=== PATIENT | male | born 1985 | race Caucasian/White ===

== ENCOUNTER 2020-12-30 09:18 | Inpatient (IN) | payer OTHER ==
[~2020-12-30] VITALS: Ht 170.2 cm; Wt 115.8 kg
[2020-12-30] VITALS (7 sets, daily range): BP systolic 101–132; BP diastolic 56–84
[2020-12-30 11:52] LABS: BASOPHILS % (AUTO) 0.7 % (0.0-5.0); EOSINOPHILS % (AUTO) 2.7 % (0.0-8.0); LYMPHOCYTES % (AUTO) 38.8 % (21.0-51.0); MEAN CORPUSCULAR HEMOGLOBIN 33.2 pg (27.0-33.0); MEAN CORPUSCULAR HGB CONC 31.8 g/dL (32.0-36.0); MEAN CORPUSCULAR VOLUME 104.3 fL (79-99); MONOCYTES % (AUTO) 10.2 % (3.0-13.0); NEUTROPHILS % (AUTO) 47.1 % (40.0-77.0); PLATELET COUNT (AUTO) 53 K/uL (130-400); RED BLOOD CELL COUNT(AUTO) 1.84 MIL/uL (4.50-6.20); RED CELL DISTRIBUTION WIDTH 14.7 % (11.0-15.5); WHITE BLOOD COUNT (AUTO) 4.4 K/uL (4.8-10.8)
[2020-12-30 12:02] LABS: INR 1.4 (0.85-1.15); PROTHROMBIN TIME 14.8 SEC (9.6-11.6)
[2020-12-30 12:10] LABS: HEMATOCRIT 19.2 % (42-54)
[2020-12-30 12:25] LABS: CREATININE 1.7 mg/dL (0.5-1.5); POTASSIUM 3.7 mmol/L (3.5-5.1)
[2020-12-30 12:26] LABS: B-TYPE NATRIURETIC PEPTIDE 186 pg/mL (0-100)
[2020-12-30 12:29] LABS: ALBUMIN 2.3 g/dL (3.5-5.0); BILIRUBIN,TOTAL 2.4 mg/dL (0.2-1.0); MAGNESIUM 1.7 mg/dL (1.80-2.40)
[2020-12-30] MEDS ORDERED: ONDANSETRON 4MG INJ IV PRN (14:00)
[2020-12-30] MEDS ORDERED: CHLORDIAZEPOXIDE HCL 25 MG CAP PO PRN ×2 (14:00)
[2020-12-30] MEDS ORDERED: PHARMACY COMMUNICATION MISC PRN (14:00)
[2020-12-30] MEDS ORDERED: MORPHINE 2 MG SYG IV PRN (14:00)
[2020-12-30] MEDS ORDERED: LACTULOSE 20 GM/30 ML UDCUP PO PRN ×2 (14:00)
[2020-12-30] MEDS ORDERED: LORAZEPAM 2 MG/ML 1 ML VIAL IVP PRN ×2 (14:00)
[2020-12-30] MEDS: FUROSEMIDE 20MG VIAL IV SCH (14:38)
[2020-12-30 16:03] LABS: % IRON SATURATION 16.5 % (30-44)
[2020-12-30] MEDS ORDERED: TRAZ-185 PO (16:52)
[2020-12-30] MEDS ORDERED: SPIR100T5 PO (16:52)
[2020-12-30] MEDS ORDERED: OMEP40CA21 PO (16:52)
[2020-12-30] MEDS ORDERED: ALPR1TAB2 PO (16:52)
[2020-12-30] MEDS ORDERED: ESCI10TA PO (16:52)
[2020-12-30] MEDS ORDERED: PROP10TA10 PO (16:52)
[2020-12-30] MEDS ORDERED: BUPR8TAB4 SL (16:52)
[2020-12-30] MEDS ORDERED: FURO40TA7 PO (16:52)
[2020-12-30 19:30] LABS: HEMATOCRIT 20.9 % (42-54)
[2020-12-30] MEDS: TRAZODONE HCL 50 MG TAB PO SCH (21:48)
[2020-12-30] MEDS: LACTULOSE 20 GM/30 ML UDCUP PO SCH (21:49)
[2020-12-30] MEDS: PROPRANOLOL HCL 10 MG TAB PO SCH (21:49)
[2020-12-30 23:21] LABS: APPEARANCE,URINE Cloudy (CLEAR); BILIRUBIN,URINE Negative (NEGATIVE); COLOR,URINE Dark Yellow (YELLOW); GLUCOSE, URINE (UA) Negative (NEGATIVE); KETONES,URINE Negative (NEGATIVE); LEUKOCYTE ESTERASE ,URINE Trace (NEGATIVE); NITRATE,URINE Negative (NEGATIVE); OCCULT BLOOD,URINE Large (NEGATIVE); PH,URINE 5.5 (5.0-8.0); PROTEIN,URINE POS 1+ mg/dL (NEGATIVE)
[2020-12-30 23:29] LABS: AMPHET/METH SCREEN,URINE NEGATIVE (NEGATIVE); BARBITURATE SCREEN, URINE NEGATIVE (NEGATIVE); BENZODIAZEPINES SCREEN,URINE POSITIVE (NEGATIVE); CANNABINOID SCREEN,URINE NEGATIVE (NEGATIVE); COCAINE SCREEN,URINE NEGATIVE (NEGATIVE); OPIATE SCREEN,URINE NEGATIVE (NEGATIVE); PHENCYCLIDINE SCREEN,URINE NEGATIVE (NEGATIVE)
[2020-12-30 23:32] LABS: RBC,URINE 26-50 /HPF (0-1); WBC,URINE 0-1 /HPF (0-1)
[2020-12-30 23:33] LABS: BACTERIA,URINE Rare /HPF (None Seen)
[2020-12-30 23:35] LABS: SQUAMOUS EPITHELIAL CELL,UR 0-2 /HPF (0-2)
[2020-12-31 01:35] LABS: CHLORIDE,URINE RANDOM 79 mmol/L (110-250); CREATININE,URINE RANDOM 75 mg/dL (30-135); POTASSIUM,URINE RANDOM 22 mmol/L (25-125); SODIUM,URINE RANDOM 53 mmol/l (40-220)
[2020-12-31] MEDS: FUROSEMIDE 20MG VIAL IV SCH ×2 (02:29→13:05)
[2020-12-31 04:00] VITALS: BP_SYST 101; BP_SYST 116; BP_DIAS 57; BP_DIAS 65
[2020-12-31 04:13] LABS: HEMATOCRIT 22.8 % (42-54); MEAN CORPUSCULAR HEMOGLOBIN 32.2 pg (27.0-33.0); MEAN CORPUSCULAR HGB CONC 32.9 g/dL (32.0-36.0); MEAN CORPUSCULAR VOLUME 97.9 fL (79-99); RED BLOOD CELL COUNT(AUTO) 2.33 MIL/uL (4.50-6.20); RED CELL DISTRIBUTION WIDTH 16.2 % (11.0-15.5); WHITE BLOOD COUNT (AUTO) 4.3 K/uL (4.8-10.8)
[2020-12-31 04:29] LABS: ALBUMIN 2.3 g/dL (3.5-5.0); CREATININE 1.5 mg/dL (0.5-1.5); MAGNESIUM 1.5 mg/dL (1.80-2.40); PHOSPHORUS 3.6 mg/dL (2.5-4.9); POTASSIUM 3.9 mmol/L (3.5-5.1); TOTAL PROTEIN, SERUM 8.1 g/dL (6.0-8.3); URIC ACID 6.9 mg/dL (2.6-7.2)
[2020-12-31 07:14] VITALS: BP 126/69
[2020-12-31] MEDS: (Escitalopram Oxalate (Lexapro) 10 MG) PO SCH (09:00)
[2020-12-31] MEDS: BUPRENORPHINE HCL SL SCH (09:00)
[2020-12-31] MEDS: ALPRAZOLAM 1 MG TAB PO SCH (10:07)
[2020-12-31] MEDS: THIAMINE HCL 100 MG/ML 2ML VIAL IM SCH (10:07)
[2020-12-31] MEDS: MULTIVITAMIN TABLET PO SCH (10:08)
[2020-12-31] MEDS: FOLIC ACID 1 MG TABLET PO SCH (10:08)
[2020-12-31] MEDS: PROPRANOLOL HCL 10 MG TAB PO SCH ×2 (10:08→21:55)
[2020-12-31] MEDS: LACTULOSE 20 GM/30 ML UDCUP PO SCH ×2 (10:09→21:55)
[2020-12-31 11:57] VITALS: BP 116/67
[2020-12-31 15:35] VITALS: BP 112/58
[2020-12-31 16:11] LABS: HEPATITIS A ANTIBODY IGM Negative (Negative); HEPATITIS B CORE IGM Negative (Negative); HEPATITIS Bs ANTIGEN SCREEN P Negative (Negative)
[2020-12-31 20:00] VITALS: BP 114/67
[2020-12-31] MEDS: TRAZODONE HCL 50 MG TAB PO SCH (21:55)
[2021-01-01] VITALS (20 sets, daily range): BP systolic 100–143; BP diastolic 48–93
[2021-01-01 06:44] LABS: BASOPHILS % (AUTO) 0.6 % (0.0-5.0); LYMPHOCYTES % (AUTO) 40.4 % (21.0-51.0); MEAN CORPUSCULAR HEMOGLOBIN 31.7 pg (27.0-33.0); MEAN CORPUSCULAR HGB CONC 31.6 g/dL (32.0-36.0); MEAN CORPUSCULAR VOLUME 100.5 fL (79-99); MONOCYTES % (AUTO) 11.4 % (3.0-13.0); NEUTROPHILS % (AUTO) 45.3 % (40.0-77.0); PLATELET COUNT (AUTO) 59 K/uL (130-400); RED BLOOD CELL COUNT(AUTO) 2.08 MIL/uL (4.50-6.20); RED CELL DISTRIBUTION WIDTH 15.9 % (11.0-15.5); WHITE BLOOD COUNT (AUTO) 3.4 K/uL (4.8-10.8)
[2021-01-01 06:54] LABS: INR 1.61 (0.85-1.15); PROTHROMBIN TIME 16.8 SEC (9.6-11.6)
[2021-01-01 07:00] LABS: HEMATOCRIT 20.9 % (42-54)
[2021-01-01] MEDS ORDERED: OCTREOTIDE ACETATE 1,250 MCG in 0.9% NACL 250ML 250 ML IV SCH (09:00)
[2021-01-01] MEDS: (Escitalopram Oxalate (Lexapro) 10 MG) PO SCH (09:00)
[2021-01-01] MEDS ORDERED: OCTREOTIDE ACETATE 100 MCG/ML AMP IV SCH (09:00)
[2021-01-01] MEDS: BUPRENORPHINE HCL SL SCH (09:00)
[2021-01-01] MEDS: THIAMINE HCL 100 MG/ML 2ML VIAL IM SCH (09:00)
[2021-01-01 09:09] LABS: CREATININE 1.7 mg/dL (0.5-1.5); POTASSIUM 3.4 mmol/L (3.5-5.1)
[2021-01-01] MEDS ORDERED: PROPOFOL 10 MG/ML 20ML VIAL IV ONE ×2 (09:58)
[2021-01-01] MEDS ORDERED: DiphenhydrAMINE HCL 50 MG/ML VIAL IV SCH (11:00)
[2021-01-01] MEDS: PANTOPRAZOLE 40 MG/VIAL IVP SCH ×2 (13:09→20:49)
[2021-01-01] MEDS: LACTULOSE 20 GM/30 ML UDCUP PO SCH ×2 (13:09→20:49)
[2021-01-01] MEDS: FOLIC ACID 1 MG TABLET PO SCH (13:10)
[2021-01-01] MEDS: MULTIVITAMIN TABLET PO SCH (13:10)
[2021-01-01] MEDS: PROPRANOLOL HCL 10 MG TAB PO SCH ×2 (13:10→20:49)
[2021-01-01] MEDS: SPIRONOLACTONE 25 MG TAB PO SCH (13:10)
[2021-01-01] MEDS: FUROSEMIDE 40 MG TABLET PO SCH ×2 (13:11→19:02)
[2021-01-01] MEDS: ALPRAZOLAM 1 MG TAB PO SCH (13:23)
[2021-01-01 17:22] LABS: HEMATOCRIT 23.6 % (42-54)
[2021-01-01] MEDS: MAGNESIUM 2GM PREMIX 50ML 50 ML IV PRN (19:02)
[2021-01-01] MEDS: TRAZODONE HCL 50 MG TAB PO SCH (20:49)
[2021-01-02] VITALS: BP 121/71
[2021-01-02 04:00] VITALS: BP 122/77
[2021-01-02 06:27] LABS: BASOPHILS % (AUTO) 0.7 % (0.0-5.0); EOSINOPHILS % (AUTO) 2.3 % (0.0-8.0); LYMPHOCYTES % (AUTO) 36.3 % (21.0-51.0); MEAN CORPUSCULAR HEMOGLOBIN 32.1 pg (27.0-33.0); MEAN CORPUSCULAR HGB CONC 32.6 g/dL (32.0-36.0); MEAN CORPUSCULAR VOLUME 98.3 fL (79-99); MONOCYTES % (AUTO) 9.9 % (3.0-13.0); NEUTROPHILS % (AUTO) 50.6 % (40.0-77.0); PLATELET COUNT (AUTO) 65 K/uL (130-400); RED BLOOD CELL COUNT(AUTO) 2.34 MIL/uL (4.50-6.20); RED CELL DISTRIBUTION WIDTH 16.5 % (11.0-15.5); WHITE BLOOD COUNT (AUTO) 4.4 K/uL (4.8-10.8)
[2021-01-02 07:50] LABS: CREATININE 1.8 mg/dL (0.5-1.5); MAGNESIUM 1.6 mg/dL (1.80-2.40)
[2021-01-02 07:55] VITALS: BP 118/66
[2021-01-02 08:23] LABS: POTASSIUM 3.5 mmol/L (3.5-5.1)
[2021-01-02] MEDS: THIAMINE HCL 100 MG/ML 2ML VIAL IM SCH (08:53)
[2021-01-02] MEDS: LACTULOSE 20 GM/30 ML UDCUP PO SCH ×2 (08:53→20:18)
[2021-01-02] MEDS: ALPRAZOLAM 1 MG TAB PO SCH (08:54)
[2021-01-02] MEDS: SPIRONOLACTONE 25 MG TAB PO SCH (08:54)
[2021-01-02] MEDS: MULTIVITAMIN TABLET PO SCH (08:54)
[2021-01-02] MEDS: FUROSEMIDE 40 MG TABLET PO SCH ×2 (08:55→17:11)
[2021-01-02] MEDS: FOLIC ACID 1 MG TABLET PO SCH (08:55)
[2021-01-02] MEDS: PROPRANOLOL HCL 10 MG TAB PO SCH ×2 (08:57→20:19)
[2021-01-02] MEDS: PANTOPRAZOLE 40 MG/VIAL IVP SCH ×2 (08:57→20:18)
[2021-01-02] MEDS: BUPRENORPHINE HCL SL SCH (09:00)
[2021-01-02] MEDS: (Escitalopram Oxalate (Lexapro) 10 MG) PO SCH (09:00)
[2021-01-02] MEDS: MAGNESIUM 2GM PREMIX 50ML 50 ML IV PRN (09:00)
[2021-01-02 11:36] VITALS: BP 100/58
[2021-01-02] MEDS ORDERED: KCL 20 MEQ ERTAB PO SCH (14:00)
[2021-01-02 15:57] VITALS: BP 108/65
[2021-01-02 20:00] VITALS: BP 125/83
[2021-01-02] MEDS: TRAZODONE HCL 50 MG TAB PO SCH (20:18)
[2021-01-03] VITALS: BP 115/70
[2021-01-03 04:00] VITALS: BP 113/71
[2021-01-03 06:30] LABS: BASOPHILS % (AUTO) 0.7 % (0.0-5.0); EOSINOPHILS % (AUTO) 2.4 % (0.0-8.0); HEMATOCRIT 23.6 % (42-54); LYMPHOCYTES % (AUTO) 30.7 % (21.0-51.0); MEAN CORPUSCULAR HEMOGLOBIN 32.3 pg (27.0-33.0); MEAN CORPUSCULAR HGB CONC 32.2 g/dL (32.0-36.0); MEAN CORPUSCULAR VOLUME 100.4 fL (79-99); MONOCYTES % (AUTO) 9.9 % (3.0-13.0); NEUTROPHILS % (AUTO) 56.1 % (40.0-77.0); PLATELET COUNT (AUTO) 82 K/uL (130-400); RED BLOOD CELL COUNT(AUTO) 2.35 MIL/uL (4.50-6.20); WHITE BLOOD COUNT (AUTO) 5.4 K/uL (4.8-10.8)
[2021-01-03 06:45] LABS: ALBUMIN 2.1 g/dL (3.5-5.0); BILIRUBIN,TOTAL 2.5 mg/dL (0.2-1.0); CREATININE 1.9 mg/dL (0.5-1.5); MAGNESIUM 1.9 mg/dL (1.80-2.40); POTASSIUM 3.6 mmol/L (3.5-5.1); TOTAL PROTEIN, SERUM 7.6 g/dL (6.0-8.3)
[2021-01-03 07:47] VITALS: BP 109/57
[2021-01-03] MEDS: BUPRENORPHINE HCL SL SCH (09:00)
[2021-01-03] MEDS: (Escitalopram Oxalate (Lexapro) 10 MG) PO SCH (09:00)
[2021-01-03] MEDS: PANTOPRAZOLE 40 MG/VIAL IVP SCH ×2 (09:07→20:49)
[2021-01-03] MEDS: SPIRONOLACTONE 25 MG TAB PO SCH (09:08)
[2021-01-03] MEDS: THIAMINE HCL 100 MG TABLET PO SCH (09:08)
[2021-01-03] MEDS: LACTULOSE 20 GM/30 ML UDCUP PO SCH ×2 (09:08→20:49)
[2021-01-03] MEDS: FOLIC ACID 1 MG TABLET PO SCH (09:09)
[2021-01-03] MEDS: PROPRANOLOL HCL 10 MG TAB PO SCH ×2 (09:09→20:50)
[2021-01-03] MEDS: MULTIVITAMIN TABLET PO SCH (09:09)
[2021-01-03] MEDS: ALPRAZOLAM 1 MG TAB PO SCH (09:09)
[2021-01-03 11:01] VITALS: BP 102/53
[2021-01-03] MEDS ORDERED: MIDODRINE HCL 5 MG TABLET PO SCH ×2 (14:30→22:00)
[2021-01-03] MEDS ORDERED: OCTREOTIDE ACETATE 100 MCG/ML AMP SQ SCH ×2 (14:30→22:00)
[2021-01-03 16:02] VITALS: BP 105/62
[2021-01-03] MEDS ORDERED: ALBUMIN (HUMAN) 25% 50 ML IV SCH (18:00)
[2021-01-03 20:00] VITALS: BP 114/62
[2021-01-03] MEDS: ALBUMIN (HUMAN) 25% 50 ML IV SCH (20:49)
[2021-01-03] MEDS: TRAZODONE HCL 50 MG TAB PO SCH (20:50)
[2021-01-04] VITALS (7 sets, daily range): BP systolic 95–123; BP diastolic 50–68
[2021-01-04] MEDS: ALBUMIN (HUMAN) 25% 50 ML IV SCH ×4 (00:03→18:16)
[2021-01-04] MEDS: MIDODRINE HCL 5 MG TABLET PO SCH ×4 (01:56→21:16)
[2021-01-04] MEDS: OCTREOTIDE ACETATE 100 MCG/ML AMP SQ SCH ×4 (01:56→21:16)
[2021-01-04 03:53] LABS: HEMATOCRIT 23.2 % (42-54); MEAN CORPUSCULAR HEMOGLOBIN 31.6 pg (27.0-33.0); MEAN CORPUSCULAR HGB CONC 31.5 g/dL (32.0-36.0); MEAN CORPUSCULAR VOLUME 100.4 fL (79-99); RED BLOOD CELL COUNT(AUTO) 2.31 MIL/uL (4.50-6.20); RED CELL DISTRIBUTION WIDTH 15.9 % (11.0-15.5); WHITE BLOOD COUNT (AUTO) 4.3 K/uL (4.8-10.8)
[2021-01-04 04:05] LABS: POTASSIUM 3.9 mmol/L (3.5-5.1)
[2021-01-04] MEDS: THIAMINE HCL 100 MG TABLET PO SCH (08:26)
[2021-01-04] MEDS: FOLIC ACID 1 MG TABLET PO SCH (08:26)
[2021-01-04] MEDS: LACTULOSE 20 GM/30 ML UDCUP PO SCH ×2 (08:26→21:16)
[2021-01-04] MEDS: PANTOPRAZOLE 40 MG TAB DR PO SCH ×2 (08:26→16:35)
[2021-01-04] MEDS: PROPRANOLOL HCL 10 MG TAB PO SCH ×2 (08:26→21:16)
[2021-01-04] MEDS: MULTIVITAMIN TABLET PO SCH (08:26)
[2021-01-04] MEDS: ALPRAZOLAM 1 MG TAB PO SCH (08:27)
[2021-01-04] MEDS: (Escitalopram Oxalate (Lexapro) 10 MG) PO SCH (08:29)
[2021-01-04] MEDS: BUPRENORPHINE HCL SL SCH (08:30)
[2021-01-04] MEDS: TRAZODONE HCL 50 MG TAB PO SCH (21:15)
[2021-01-05] MEDS: ALBUMIN (HUMAN) 25% 50 ML IV SCH (00:24)
[2021-01-05 03:50] VITALS: BP 124/65
[2021-01-05 04:13] LABS: BASOPHILS % (AUTO) 0.6 % (0.0-5.0); EOSINOPHILS % (AUTO) 2.5 % (0.0-8.0); HEMATOCRIT 24.6 % (42-54); LYMPHOCYTES % (AUTO) 30.5 % (21.0-51.0); MEAN CORPUSCULAR HEMOGLOBIN 32.1 pg (27.0-33.0); MEAN CORPUSCULAR HGB CONC 31.3 g/dL (32.0-36.0); MEAN CORPUSCULAR VOLUME 102.5 fL (79-99); MONOCYTES % (AUTO) 10.2 % (3.0-13.0); NEUTROPHILS % (AUTO) 55.8 % (40.0-77.0); PLATELET COUNT (AUTO) 70 K/uL (130-400); RED CELL DISTRIBUTION WIDTH 15.6 % (11.0-15.5); WHITE BLOOD COUNT (AUTO) 4.7 K/uL (4.8-10.8)
[2021-01-05 04:27] LABS: ALBUMIN 2.7 g/dL (3.5-5.0); BILIRUBIN,TOTAL 2.5 mg/dL (0.2-1.0); CREATININE 2.2 mg/dL (0.5-1.5); POTASSIUM 4.2 mmol/L (3.5-5.1); TOTAL PROTEIN, SERUM 7.8 g/dL (6.0-8.3)
[2021-01-05] MEDS: OCTREOTIDE ACETATE 100 MCG/ML AMP SQ SCH ×3 (05:58→21:32)
[2021-01-05] MEDS: PANTOPRAZOLE 40 MG TAB DR PO SCH ×2 (05:58→16:04)
[2021-01-05] MEDS: MIDODRINE HCL 5 MG TABLET PO SCH ×3 (05:58→21:32)
[2021-01-05 07:08] VITALS: BP 117/70
[2021-01-05] MEDS: FOLIC ACID 1 MG TABLET PO SCH (08:35)
[2021-01-05] MEDS: THIAMINE HCL 100 MG TABLET PO SCH (08:35)
[2021-01-05] MEDS: ALPRAZOLAM 1 MG TAB PO SCH (08:35)
[2021-01-05] MEDS: MULTIVITAMIN TABLET PO SCH (08:35)
[2021-01-05] MEDS: LACTULOSE 20 GM/30 ML UDCUP PO SCH ×2 (08:37→21:32)
[2021-01-05] MEDS: BUPRENORPHINE HCL SL SCH (08:38)
[2021-01-05] MEDS: (Escitalopram Oxalate (Lexapro) 10 MG) PO SCH (08:38)
[2021-01-05] MEDS ORDERED: COMPOUND IV MISC 1 EACH IVSOLN MISC PRN (09:00)
[2021-01-05] MEDS ORDERED: PHARMACY COMMUNICATION MISC SCH (09:00)
[2021-01-05] MEDS ORDERED: EPOETIN ALFA-EPBX (NON-ESRD) 10,000 UNIT/ML VIAL SQ SCH (09:00)
[2021-01-05] MEDS: ALBUMIN (HUMAN) 25% 200 ML IV SCH (10:40)
[2021-01-05] MEDS: IRON SUCROSE COMPLEX 300 MG in 0.9%NACL 50ML 50 ML IV SCH (10:41)
[2021-01-05 11:06] VITALS: BP 123/73
[2021-01-05 15:53] VITALS: BP 111/71
[2021-01-05 20:08] VITALS: BP 121/69
[2021-01-05] MEDS: TRAZODONE HCL 50 MG TAB PO SCH (21:32)
[2021-01-06 00:12] VITALS: BP 108/60
[2021-01-06 04:02] LABS: BASOPHILS % (AUTO) 0.8 % (0.0-5.0); EOSINOPHILS % (AUTO) 2.2 % (0.0-8.0); HEMATOCRIT 24.6 % (42-54); LYMPHOCYTES % (AUTO) 28.8 % (21.0-51.0); MEAN CORPUSCULAR HEMOGLOBIN 31.5 pg (27.0-33.0); MEAN CORPUSCULAR HGB CONC 30.9 g/dL (32.0-36.0); MEAN CORPUSCULAR VOLUME 102.1 fL (79-99); MONOCYTES % (AUTO) 11.9 % (3.0-13.0); NEUTROPHILS % (AUTO) 56.1 % (40.0-77.0); PLATELET COUNT (AUTO) 72 K/uL (130-400); RED BLOOD CELL COUNT(AUTO) 2.41 MIL/uL (4.50-6.20); RED CELL DISTRIBUTION WIDTH 15.3 % (11.0-15.5)
[2021-01-06 04:16] VITALS: BP 112/58
[2021-01-06 04:17] LABS: ALBUMIN 2.6 g/dL (3.5-5.0); BILIRUBIN,TOTAL 2.3 mg/dL (0.2-1.0); CREATININE 2.2 mg/dL (0.5-1.5); POTASSIUM 4.9 mmol/L (3.5-5.1); TOTAL PROTEIN, SERUM 7.8 g/dL (6.0-8.3)
[2021-01-06 04:59] LABS: INR 1.64 (0.85-1.15); PROTHROMBIN TIME 17.1 SEC (9.6-11.6)
[2021-01-06 05:00] LABS: PARTIAL THROMBOPLASTIN TIME 34.7 SEC (26.3-35.5)
[2021-01-06] MEDS: OCTREOTIDE ACETATE 100 MCG/ML AMP SQ SCH ×2 (06:49→14:18)
[2021-01-06] MEDS: PANTOPRAZOLE 40 MG TAB DR PO SCH ×2 (06:49→16:57)
[2021-01-06] MEDS: MIDODRINE HCL 5 MG TABLET PO SCH ×2 (06:49→14:18)
[2021-01-06] MEDS: (Escitalopram Oxalate (Lexapro) 10 MG) PO SCH (07:42)
[2021-01-06] MEDS: ALBUMIN (HUMAN) 25% 200 ML IV SCH (07:42)
[2021-01-06] MEDS: THIAMINE HCL 100 MG TABLET PO SCH (07:42)
[2021-01-06] MEDS: MULTIVITAMIN TABLET PO SCH (07:42)
[2021-01-06] MEDS: LACTULOSE 20 GM/30 ML UDCUP PO SCH (07:42)
[2021-01-06] MEDS: FOLIC ACID 1 MG TABLET PO SCH (07:42)
[2021-01-06] MEDS: ALPRAZOLAM 1 MG TAB PO SCH (07:42)
[2021-01-06] MEDS: IRON SUCROSE COMPLEX 300 MG in 0.9%NACL 50ML 50 ML IV SCH (07:43)
[2021-01-06 07:45] VITALS: BP 118/50
[2021-01-06] MEDS: BUPRENORPHINE HCL SL SCH (08:01)
[2021-01-06 11:00] VITALS: BP 122/64
[2021-01-06 16:00] VITALS: BP 100/43
[2021-01-06] MEDS ORDERED: THIA100T91 PO (17:15)
[2021-01-06] MEDS ORDERED: MIDO10TA PO (17:15)
[2021-01-06] MEDS ORDERED: FOLI1 PO (17:15)
[2021-01-06] MEDS ORDERED: TRAZ-187 PO (17:15)
[2021-01-06] MEDS ORDERED: ALPR1TAB2 PO (17:15)
[2021-01-06] MEDS ORDERED: LACT PO (17:15)
[2021-01-06] MEDS ORDERED: MIDODRINE HCL 5 MG TABLET PO SCH (22:00)
== END 2021-01-06 18:10 | disposition home or self-care (01) | DRG 808 ==
LOC: EDH 09:18 → EDHIP 09:19 → 4BH 22:40
PROVIDERS: ADMIT Internal Medicine; ATTEND Internal Medicine
PROC: 30233N1 Transfusion of Nonautologous Red Blood Cells into Peripheral Vein, Percutaneous Approach (ICD-10-PCS; principal; 2020-12-30)
PROC: 0DJ08ZZ Inspection of Upper Intestinal Tract, Via Natural or Artificial Opening Endoscopic (ICD-10-PCS; 2021-01-01)
DX: D61.818 Other pancytopenia (principal); I50.33 Acute on chronic diastolic (congestive) heart failure; K92.2 Gastrointestinal hemorrhage, unspecified; N17.9 Acute kidney failure, unspecified; D68.9 Coagulation defect, unspecified; Z68.41 Body mass index [BMI] 40.0-44.9, adult; I13.0 Hypertensive heart and chronic kidney disease with heart failure and stage 1 through stage 4 chronic kidney disease, or unspecified chronic kidney disease; I85.10 Secondary esophageal varices without bleeding; K76.6 Portal hypertension; K72.90 Hepatic failure, unspecified without coma; D62 Acute posthemorrhagic anemia; K70.31 Alcoholic cirrhosis of liver with ascites; N18.9 Chronic kidney disease, unspecified; E11.22 Type 2 diabetes mellitus with diabetic chronic kidney disease; F41.9 Anxiety disorder, unspecified; B18.2 Chronic viral hepatitis C; D53.9 Nutritional anemia, unspecified; E66.9 Obesity, unspecified; E88.09 Other disorders of plasma-protein metabolism, not elsewhere classified; F10.129 Alcohol abuse with intoxication, unspecified; K31.89 Other diseases of stomach and duodenum; N50.89 Other specified disorders of the male genital organs; F32.9 Major depressive disorder, single episode, unspecified; R16.1 Splenomegaly, not elsewhere classified; Z90.49 Acquired absence of other specified parts of digestive tract; Z91.19 Patient's noncompliance with other medical treatment and regimen
CPT/HCPCS: 36415; 36430; 43235; 71045; 74176; 76705; 76870; 80048; 80053; 80074; 80305; 81001; 82140; 82270; 82436; 82550; 82570; 82607; 82728; 82746; 82948; 83540; 83550; 83615; 83735; 83880; 83935; 84100; 84133; 84145; 84300; 84484; 84550; 85014; 85018; 85025; 85027; 85378; 85610; 85730; 86038; 86334; 86850; 86900; 86901; 86923; 87040; 87088; 93306; 93356; 93970; A4606; C9113; G0378; J1200; J1756; J1940; J2060; J2354; J2405; J2704; J3411; J3475; J7030; J7050; P9016; P9046; P9047

== ENCOUNTER 2021-04-12 09:16 | Emergency (ER) | payer MEDICAID ==
[~2021-04-12] VITALS: Ht 170.2 cm; Wt 108.9 kg
[~2021-04-12 09:16] MED LIST: ALPR1TAB2 PO; ESCI10TA PO; FOLI1 PO; LACT PO; MIDO10TA PO; THIA100T91 PO; TRAZ-187 PO
[2021-04-12 09:19] VITALS: BP 128/67
[2021-04-12 09:49] LABS: BASOPHILS % (AUTO) 0.7 % (0.0-5.0); HEMATOCRIT 23.4 % (42-54); LYMPHOCYTES % (AUTO) 25.1 % (21.0-51.0); MEAN CORPUSCULAR HEMOGLOBIN 32.5 pg (27.0-33.0); MEAN CORPUSCULAR HGB CONC 32.5 g/dL (32.0-36.0); MONOCYTES % (AUTO) 8.6 % (3.0-13.0); NEUTROPHILS % (AUTO) 64.3 % (40.0-77.0); PLATELET COUNT (AUTO) 33 K/uL (130-400); RED BLOOD CELL COUNT(AUTO) 2.34 MIL/uL (4.50-6.20); RED CELL DISTRIBUTION WIDTH 14.5 % (11.0-15.5)
[2021-04-12 09:59] LABS: INR 1.65 (0.85-1.15); PROTHROMBIN TIME 17.2 SEC (9.6-11.6)
[2021-04-12 10:00] LABS: PARTIAL THROMBOPLASTIN TIME 36.2 SEC (26.3-35.5)
[2021-04-12 10:10] LABS: LYMPHOCYTES % (MANUAL) 23 % (22-44); MAN.DIFF COMMENT-IMPRESSION MANUAL DIFFERENTIAL; MONOCYTES % (MANUAL) 5 % (2-9); SEGMENTED NEUTROPHILS % 72 % (40-70)
[2021-04-12 10:12] LABS: ALBUMIN 2.3 g/dL (3.5-5.0); BILIRUBIN,TOTAL 2.9 mg/dL (0.2-1.0); CREATININE 1.3 mg/dL (0.5-1.5); POTASSIUM 3.3 mmol/L (3.5-5.1); TOTAL PROTEIN, SERUM 7.7 g/dL (6.0-8.3)
[2021-04-12 10:18] LABS: PLATELET MORPHOLOGY COMMENT DECREASED
[2021-04-12 10:20] LABS: B-TYPE NATRIURETIC PEPTIDE 266 pg/mL (0-100)
[2021-04-12 10:36] LABS: APPEARANCE,URINE Cloudy (CLEAR); BILIRUBIN,URINE Small (NEGATIVE); COLOR,URINE Orange (YELLOW); GLUCOSE, URINE (UA) Negative (NEGATIVE); KETONES,URINE Negative (NEGATIVE); LEUKOCYTE ESTERASE ,URINE Trace (NEGATIVE); NITRATE,URINE Negative (NEGATIVE); OCCULT BLOOD,URINE Large (NEGATIVE); PH,URINE 6.5 (5.0-8.0); PROTEIN,URINE POS 2+ mg/dL (NEGATIVE)
[2021-04-12 10:46] LABS: AMPHET/METH SCREEN,URINE NEGATIVE (NEGATIVE); BARBITURATE SCREEN, URINE NEGATIVE (NEGATIVE); BENZODIAZEPINES SCREEN,URINE POSITIVE (NEGATIVE); CANNABINOID SCREEN,URINE NEGATIVE (NEGATIVE); COCAINE SCREEN,URINE NEGATIVE (NEGATIVE); OPIATE SCREEN,URINE NEGATIVE (NEGATIVE); PHENCYCLIDINE SCREEN,URINE NEGATIVE (NEGATIVE)
[2021-04-12 10:55] LABS: BACTERIA,URINE Rare /HPF (None Seen); COARSE GRANULAR CASTS,URINE 0-2 /LPF (None Seen); RBC,URINE TNTC /HPF (0-1); SQUAMOUS EPITHELIAL CELL,UR 0-2 /HPF (0-2); WBC,URINE 0-1 /HPF (0-1)
== END 2021-04-12 11:14 | disposition home or self-care (01) ==
LOC: EDH 09:16
DX: B19.20 Unspecified viral hepatitis C without hepatic coma (principal); D61.818 Other pancytopenia; F41.9 Anxiety disorder, unspecified; Z79.899 Other long term (current) drug therapy
CPT/HCPCS: 36415; 71045; 80053; 80305; 81001; 82550; 83874; 83880; 84484; 85025; 85610; 85730; 86850; 86900; 86901; 93005

== ENCOUNTER 2021-06-01 16:04 | Inpatient (IN) | payer MEDICAID ==
[~2021-06-01] VITALS: Ht 170.2 cm; Wt 118.6 kg
[2021-06-01 17:11] LABS: BASOPHILS % (AUTO) 1.3 % (0.0-5.0); EOSINOPHILS % (AUTO) 2.9 % (0.0-8.0); LYMPHOCYTES % (AUTO) 30.1 % (21.0-51.0); MEAN CORPUSCULAR HEMOGLOBIN 29.3 pg (27.0-33.0); MEAN CORPUSCULAR HGB CONC 30.4 g/dL (32.0-36.0); MEAN CORPUSCULAR VOLUME 96.5 fL (79-99); MONOCYTES % (AUTO) 9.8 % (3.0-13.0); NEUTROPHILS % (AUTO) 55.4 % (40.0-77.0); PLATELET COUNT (AUTO) 90 K/uL (130-400); RED BLOOD CELL COUNT(AUTO) 1.98 MIL/uL (4.50-6.20); RED CELL DISTRIBUTION WIDTH 13.2 % (11.0-15.5); WHITE BLOOD COUNT (AUTO) 3.8 K/uL (4.8-10.8)
[2021-06-01 17:26] LABS: ALBUMIN 1.7 g/dL (3.5-5.0); BILIRUBIN,TOTAL 1.4 mg/dL (0.2-1.0); CREATININE 1.3 mg/dL (0.5-1.5); POTASSIUM 3.4 mmol/L (3.5-5.1); TOTAL PROTEIN, SERUM 7.4 g/dL (6.0-8.3)
[2021-06-01] MEDS ORDERED: PANTOPRAZOLE 40 MG/VIAL IVP ONE (17:30)
[2021-06-01 17:33] LABS: HEMATOCRIT 19.1 % (42-54)
[2021-06-01 17:59] LABS: INR 1.51 (0.85-1.15); PROTHROMBIN TIME 15.9 SEC (9.6-11.6)
[2021-06-01] MEDS ORDERED: PANTOPRAZOLE 40 MG/VIAL ONE (19:37)
[2021-06-01] MEDS ORDERED: ONDANSETRON 4MG INJ IV PRN (20:30)
[2021-06-01] MEDS ORDERED: NITROGLYCERIN 0.4 MG SL TAB SL PRN (20:30)
[2021-06-01] MEDS ORDERED: ACETAMINOPHEN 650 MG SUPPOSITORY RC PRN (21:00)
[2021-06-01] MEDS ORDERED: HYDROMORPHONE 0.5 MG SYG (0.5MG/0.5ML) IVP PRN (21:00)
[2021-06-01] MEDS ORDERED: 0.9%NACL 1000ML 1,000 ML IV ONE (21:02)
[2021-06-01] MEDS: 0.9%NACL 1000ML 1,000 ML IV SCH (21:05)
[2021-06-01] MEDS: PANTOPRAZOLE 40MG INJ 80 MG in 0.9%NACL 100ML 100 ML IV SCH (22:59)
[2021-06-02] VITALS (18 sets, daily range): BP systolic 108–156; BP diastolic 44–92
[2021-06-02] MEDS ORDERED: POTASSIUM CHLORIDE 20MEQ/100ML 100 ML IV PRN ×2 (00:30)
[2021-06-02] MEDS ORDERED: DEXTROSE 50%-WATER 50 ML DISP.SYRIN IV PRN (00:30)
[2021-06-02] MEDS ORDERED: GLUCAGON 1MG KIT 1 MG ML IM PRN (00:30)
[2021-06-02] MEDS ORDERED: LIDOCAINE HCL-MPF 1% 2ML VIAL IV PRN ×2 (00:30)
[2021-06-02] MEDS ORDERED: POTASSIUM CHLORIDE 10% ELIXIR 20 MEQ/15 ML UDCUP PO PRN (00:30)
[2021-06-02] MEDS ORDERED: MAGNESIUM 2GM PREMIX 50ML 50 ML IV PRN (00:30)
[2021-06-02] MEDS: PHARMACY COMMUNICATION MISC SCH (00:30)
[2021-06-02 01:25] LABS: ABG BASE EXCESS 5.9 mmol/L (-2.0-3.0); ABG HCO3 29.6 mmol/L (21.0-28.0); ABG OXYGEN SATURATION 97.7 % (95.0-99.0); ABG PCO2 40 mmHg (35-48)
[2021-06-02] MEDS ORDERED: OCTREOTIDE ACETATE 200 MCG/ML 5 ML VIAL ONE (03:51)
[2021-06-02] MEDS: OCTREOTIDE ACETATE 1,250 MCG in 0.9% NACL 250ML 250 ML IV SCH (03:56)
[2021-06-02] MEDS ORDERED: HYDRALAZINE 20MG/ML VIAL IV PRN (04:00)
[2021-06-02 04:03] LABS: HEMATOCRIT 19.5 % (42-54)
[2021-06-02 04:11] LABS: ALCOHOL, BLOOD 6 mg/dL (0-10)
[2021-06-02 04:17] LABS: AMMONIA 68 umol/L (11-32)
[2021-06-02] MEDS: LACTULOSE 20 GM/30 ML UDCUP PO SCH ×3 (04:50→17:30)
[2021-06-02 05:27] LABS: APPEARANCE,URINE Clear (CLEAR); BILIRUBIN,URINE Negative (NEGATIVE); COLOR,URINE Yellow (YELLOW); GLUCOSE, URINE (UA) Negative (NEGATIVE); KETONES,URINE Negative (NEGATIVE); LEUKOCYTE ESTERASE ,URINE Trace (NEGATIVE); NITRATE,URINE Negative (NEGATIVE); OCCULT BLOOD,URINE Large (NEGATIVE); PH,URINE 8.5 (5.0-8.0); PROTEIN,URINE POS 1+ mg/dL (NEGATIVE)
[2021-06-02 05:35] LABS: AMPHET/METH SCREEN,URINE NEGATIVE (NEGATIVE); BARBITURATE SCREEN, URINE NEGATIVE (NEGATIVE); BENZODIAZEPINES SCREEN,URINE POSITIVE (NEGATIVE); CANNABINOID SCREEN,URINE NEGATIVE (NEGATIVE); COCAINE SCREEN,URINE NEGATIVE (NEGATIVE); OPIATE SCREEN,URINE NEGATIVE (NEGATIVE); PHENCYCLIDINE SCREEN,URINE NEGATIVE (NEGATIVE)
[2021-06-02 05:41] LABS: BACTERIA,URINE None Seen /HPF (None Seen); RBC,URINE TNTC /HPF (0-1)
[2021-06-02 05:42] LABS: MUCUS,URINE Few LPF (None Seen); SQUAMOUS EPITHELIAL CELL,UR None Seen /HPF (0-2)
[2021-06-02] MEDS ORDERED: IOHEXOL 350 MG/ML 100ML INFUS..BTL IV ONE (05:51)
[2021-06-02] MEDS ORDERED: PROPOFOL 10 MG/ML 20ML VIAL IV ONE (06:58)
[2021-06-02] MEDS ORDERED: FENTANYL CITRATE PF 50 MCG/1 ML 2ML VIAL ONE ×2 (06:59→08:56)
[2021-06-02] MEDS ORDERED: LIDOCAINE HCL 1% 20 ML VIAL ONE (06:59)
[2021-06-02] MEDS ORDERED: PHYT100T PO (08:34)
[2021-06-02] MEDS ORDERED: ALPR1TAB7 PO (08:34)
[2021-06-02] MEDS ORDERED: SPIR50TA5 PO (08:34)
[2021-06-02] MEDS ORDERED: MAGN400T40 PO (08:34)
[2021-06-02] MEDS ORDERED: POTA-79 PO (08:34)
[2021-06-02] MEDS ORDERED: FURO-152 PO (08:34)
[2021-06-02] MEDS ORDERED: MIDAZOLAM HCL 1 MG/ML 2ML VIAL ONE (08:57)
[2021-06-02] MEDS ORDERED: COMPOUND IV REFRIGERATED 1 EACH IVSOLN MISC PRN (12:00)
[2021-06-02] MEDS: PHYTONADIONE 10 MG in 0.9%NACL 50ML 50 ML IVPB NR (12:24)
[2021-06-02] MEDS ORDERED: ALPRAZOLAM 1 MG TAB PO ONE (16:00)
[2021-06-02] MEDS ORDERED: PEG 3350/NA SULF,BICARB,CL/KCL 4000 ML SOLN PO ONE ×2 (16:39→17:00)
[2021-06-02] MEDS: KCL 20 MEQ ERTAB PO PRN ×2 (17:40→20:19)
[2021-06-02] MEDS: PANTOPRAZOLE 40MG INJ 80 MG in 0.9%NACL 100ML 100 ML IV SCH ×2 (18:00→18:55)
[2021-06-02] MEDS ORDERED: FUROSEMIDE 40MG VIAL IV ONE (18:30)
[2021-06-02] MEDS: CEFTRIAXONE 1G VIAL IVP SCH (18:53)
[2021-06-02 19:12] LABS: HEMATOCRIT 23.1 % (42-54)
[2021-06-03 01:35] VITALS: BP 124/63
[2021-06-03] MEDS: LACTULOSE 20 GM/30 ML UDCUP PO SCH ×2 (01:38→03:42)
[2021-06-03] MEDS: 0.9%NACL 1000ML 1,000 ML IV SCH ×2 (01:39→12:30)
[2021-06-03] MEDS: ALPRAZOLAM 1 MG TAB PO SCH ×3 (01:39→23:30)
[2021-06-03 05:27] LABS: EOSINOPHILS % (AUTO) 4.1 % (0.0-8.0); HEMATOCRIT 25.3 % (42-54); LYMPHOCYTES % (AUTO) 36.5 % (21.0-51.0); MEAN CORPUSCULAR HEMOGLOBIN 28.9 pg (27.0-33.0); MEAN CORPUSCULAR HGB CONC 30.8 g/dL (32.0-36.0); MEAN CORPUSCULAR VOLUME 93.7 fL (79-99); MONOCYTES % (AUTO) 9.4 % (3.0-13.0); NEUTROPHILS % (AUTO) 48.7 % (40.0-77.0); PLATELET COUNT (AUTO) 79 K/uL (130-400); RED CELL DISTRIBUTION WIDTH 15.1 % (11.0-15.5); WHITE BLOOD COUNT (AUTO) 3.9 K/uL (4.8-10.8)
[2021-06-03 05:37] LABS: INR 1.63 (0.85-1.15)
[2021-06-03 05:39] LABS: PARTIAL THROMBOPLASTIN TIME 32.4 SEC (26.3-35.5)
[2021-06-03] MEDS: PANTOPRAZOLE 40MG INJ 80 MG in 0.9%NACL 100ML 100 ML IV SCH ×2 (05:40→17:13)
[2021-06-03 05:42] LABS: ALBUMIN 1.8 g/dL (3.5-5.0); BILIRUBIN,TOTAL 2.8 mg/dL (0.2-1.0); CREATININE 1.5 mg/dL (0.5-1.5); POTASSIUM 3.9 mmol/L (3.5-5.1); TOTAL PROTEIN, SERUM 6.9 g/dL (6.0-8.3)
[2021-06-03 06:00] VITALS: BP 114/58
[2021-06-03 08:00] VITALS: BP 126/60
[2021-06-03] MEDS ORDERED: PHYTONADIONE 10 MG in 0.9%NACL 50ML 50 ML IVPB ONE (08:00)
[2021-06-03 08:16] LABS: HEPATITIS B CORE IGM Negative (Negative); HEPATITIS Bs ANTIGEN SCREEN P Negative (Negative)
[2021-06-03] MEDS: PHYTONADIONE 10 MG in 0.9%NACL 50ML 50 ML IVPB NR (09:48)
[2021-06-03 12:00] VITALS: BP 113/51
[2021-06-03 16:00] VITALS: BP 146/53
[2021-06-03] MEDS ORDERED: PEG 3350/NA SULF,BICARB,CL/KCL 4000 ML SOLN PO ONE (16:00)
[2021-06-03] MEDS: PHARMACY COMMUNICATION MISC SCH (18:23)
[2021-06-03] MEDS: CEFTRIAXONE 1G VIAL IVP SCH (18:24)
[2021-06-03 20:00] VITALS: BP 115/69
[2021-06-03] MEDS ORDERED: MAGNESIUM CITRATE 296 ML SOLUTION PO ONE (20:30)
[2021-06-04] VITALS (17 sets, daily range): BP systolic 97–133; BP diastolic 48–88
[2021-06-04] MEDS: PHARMACY COMMUNICATION MISC SCH (00:30)
[2021-06-04] MEDS: PANTOPRAZOLE 40MG INJ 80 MG in 0.9%NACL 100ML 100 ML IV SCH (03:32)
[2021-06-04] MEDS: OCTREOTIDE ACETATE 1,250 MCG in 0.9% NACL 250ML 250 ML IV SCH (03:33)
[2021-06-04 07:38] LABS: HEMATOCRIT 24.1 % (42-54); MEAN CORPUSCULAR HEMOGLOBIN 28.5 pg (27.0-33.0); MEAN CORPUSCULAR HGB CONC 31.1 g/dL (32.0-36.0); MEAN CORPUSCULAR VOLUME 91.6 fL (79-99); RED BLOOD CELL COUNT(AUTO) 2.63 MIL/uL (4.50-6.20); RED CELL DISTRIBUTION WIDTH 14.7 % (11.0-15.5); WHITE BLOOD COUNT (AUTO) 4.8 K/uL (4.8-10.8)
[2021-06-04] MEDS ORDERED: KETAMINE 50MG/ML SYRINGE 50 MG/ML DISP.SYRIN IV ONE (07:46)
[2021-06-04] MEDS ORDERED: PROPOFOL 10 MG/ML 20ML VIAL IV ONE ×2 (07:46→07:50)
[2021-06-04] MEDS ORDERED: GLYCOPYRROLATE 1 MG/5 ML SYRINGE ONE (07:46)
[2021-06-04] MEDS ORDERED: LIDOCAINE PF 100MG/5ML (2%) SYRINGE 5ML ONE (07:46)
[2021-06-04] MEDS ORDERED: MIDAZOLAM HCL 1 MG/ML 2ML VIAL ONE (07:47)
[2021-06-04 07:55] LABS: CREATININE 1.5 mg/dL (0.5-1.5); POTASSIUM 3.7 mmol/L (3.5-5.1)
[2021-06-04] MEDS: 0.9%NACL 1000ML 1,000 ML IV SCH (08:30)
[2021-06-04] MEDS: ALPRAZOLAM 1 MG TAB PO SCH ×2 (10:36→21:25)
[2021-06-04] MEDS: PROPRANOLOL HCL 10 MG TAB PO SCH ×2 (10:39→18:03)
[2021-06-04] MEDS: FUROSEMIDE 40MG VIAL IV SCH ×2 (10:40→21:25)
[2021-06-04] MEDS: PANTOPRAZOLE 40 MG TAB DR PO SCH (10:42)
[2021-06-04] MEDS ORDERED: IRON SUCROSE COMPLEX 100 MG in 0.9%NACL 50ML 50 ML IV SCH (12:30)
[2021-06-04] MEDS ORDERED: COMPOUND IV MISC 1 EACH IVSOLN MISC PRN (13:00)
[2021-06-04] MEDS: KCL 20 MEQ ERTAB PO PRN ×2 (16:20→18:02)
[2021-06-04] MEDS: CEFTRIAXONE 1G VIAL IVP SCH (18:01)
[2021-06-04 18:49] LABS: COLLECTION PERIOD,URINE 24 HR; TOTAL VOLUME 24HRS,URINE 2700 mL
[2021-06-04 18:50] LABS: TPROTEIN TIMED,URINE 33 mg/dL; TPROTEIN U,24HR CALC 891 mg/24HR (0-165)
[2021-06-04] MEDS: SPIRONOLACTONE 25 MG TAB PO SCH (21:24)
[2021-06-05] VITALS: BP 102/50
[2021-06-05] MEDS: PROPRANOLOL HCL 10 MG TAB PO SCH ×2 (02:20→10:24)
[2021-06-05 04:00] VITALS: BP 102/46
[2021-06-05] MEDS: 0.9%NACL 1000ML 1,000 ML IV SCH (04:30)
[2021-06-05 05:12] LABS: HEMATOCRIT 25.5 % (42-54); MEAN CORPUSCULAR HEMOGLOBIN 28.7 pg (27.0-33.0); MEAN CORPUSCULAR HGB CONC 30.6 g/dL (32.0-36.0); MEAN CORPUSCULAR VOLUME 93.8 fL (79-99); RED BLOOD CELL COUNT(AUTO) 2.72 MIL/uL (4.50-6.20); RED CELL DISTRIBUTION WIDTH 14.6 % (11.0-15.5); WHITE BLOOD COUNT (AUTO) 5.4 K/uL (4.8-10.8)
[2021-06-05 05:25] LABS: CREATININE 1.6 mg/dL (0.5-1.5)
[2021-06-05 08:00] VITALS: BP 99/45
[2021-06-05] MEDS: PANTOPRAZOLE 40 MG TAB DR PO SCH (08:19)
[2021-06-05] MEDS: SPIRONOLACTONE 25 MG TAB PO SCH (08:19)
[2021-06-05] MEDS: ALPRAZOLAM 1 MG TAB PO SCH (08:20)
[2021-06-05] MEDS ORDERED: IRON SUCROSE COMPLEX 100 MG in 0.9%NACL 50ML 50 ML IV SCH (09:00)
[2021-06-05] MEDS: FUROSEMIDE 40MG VIAL IV SCH (10:24)
[2021-06-05 12:00] VITALS: BP 98/52
[2021-06-05] MEDS ORDERED: PANT40TA54 PO (12:08)
[2021-06-05] MEDS ORDERED: FURO40TA5 PO (12:08)
[2021-06-05] MEDS ORDERED: FERR324T PO (12:08)
[2021-06-05] MEDS ORDERED: POLY17PO4 PO (12:08)
[2021-06-05] MEDS ORDERED: MAGNESIUM 2GM PREMIX 50ML 50 ML IV SCH (12:30)
== END 2021-06-05 15:30 | disposition home or self-care (01) | DRG 194 ==
LOC: EDH 16:04 → OBSVTOIN 16:05 → EDHIP 16:05 → 3AH 06-02 03:16
PROVIDERS: ADMIT Internal Medicine; ATTEND Internal Medicine
PROC: 30233N1 Transfusion of Nonautologous Red Blood Cells into Peripheral Vein, Percutaneous Approach (ICD-10-PCS; 2021-06-01)
PROC: 0DJ08ZZ Inspection of Upper Intestinal Tract, Via Natural or Artificial Opening Endoscopic (ICD-10-PCS; principal; 2021-06-02)
PROC: 0DJD8ZZ Inspection of Lower Intestinal Tract, Via Natural or Artificial Opening Endoscopic (ICD-10-PCS; 2021-06-04)
DX: I11.0 Hypertensive heart disease with heart failure (principal); K72.00 Acute and subacute hepatic failure without coma; K25.4 Chronic or unspecified gastric ulcer with hemorrhage; D61.818 Other pancytopenia; N17.9 Acute kidney failure, unspecified; I50.33 Acute on chronic diastolic (congestive) heart failure; D68.9 Coagulation defect, unspecified; E88.09 Other disorders of plasma-protein metabolism, not elsewhere classified; K76.6 Portal hypertension; D62 Acute posthemorrhagic anemia; K74.60 Unspecified cirrhosis of liver; B18.2 Chronic viral hepatitis C; K63.89 Other specified diseases of intestine; F41.9 Anxiety disorder, unspecified; D73.1 Hypersplenism; K72.10 Chronic hepatic failure without coma; K59.00 Constipation, unspecified; Z68.41 Body mass index [BMI] 40.0-44.9, adult; E66.9 Obesity, unspecified; Z79.899 Other long term (current) drug therapy; Z90.49 Acquired absence of other specified parts of digestive tract
CPT/HCPCS: 36415; 36430; 36600; 43235; 45378; 71045; 74170; 80048; 80053; 80074; 80305; 81001; 82103; 82105; 82140; 82270; 82803; 82948; 83010; 83615; 83735; 83880; 84156; 84165; 85014; 85018; 85025; 85027; 85610; 85730; 86701; 86850; 86900; 86901; 86923; 87390; 93306; 99152; 99291; A4606; C9113; G0378; J0696; J1756; J1940; J2001; J2250; J2354; J2704; J3010; J3430; J3475; J3490; J7030; J7050; P9016; Q9967

== ENCOUNTER 2022-01-18 01:06 | Observation (INO) | payer MEDICAID ==
[~2022-01-18] VITALS: Ht 170.2 cm; Wt 116.8 kg
[~2022-01-18 01:06] MED LIST changes: -ALPR1TAB2 PO; +ALPR1TAB7 PO; -ESCI10TA PO; +FERR324T PO; -FOLI1 PO; +FURO40TA5 PO; +MAGN400T40 PO; -MIDO10TA PO; +PANT40TA54 PO; +PHYT100T PO; +POLY17PO4 PO; +POTA-79 PO; +SPIR50TA5 PO; -THIA100T91 PO
[2022-01-18 01:54] LABS: BASOPHILS % (AUTO) 0.5 % (0.0-5.0); LYMPHOCYTES % (AUTO) 26.2 % (21.0-51.0); MEAN CORPUSCULAR HEMOGLOBIN 28.5 pg (27.0-33.0); MEAN CORPUSCULAR HGB CONC 30.2 g/dL (32.0-36.0); MEAN CORPUSCULAR VOLUME 94.2 fL (79-99); NEUTROPHILS % (AUTO) 58.8 % (40.0-77.0); PLATELET COUNT (AUTO) 68 K/uL (130-400); RED BLOOD CELL COUNT(AUTO) 1.72 MIL/uL (4.50-6.20); RED CELL DISTRIBUTION WIDTH 15.6 % (11.0-15.5); WHITE BLOOD COUNT (AUTO) 4.1 K/uL (4.8-10.8)
[2022-01-18 02:00] LABS: HEMATOCRIT 16.2 % (42-54)
[2022-01-18] MEDS ORDERED: FUROSEMIDE 40MG VIAL IV ONE (02:00)
[2022-01-18] MEDS ORDERED: PANTOPRAZOLE 40 MG/VIAL IVP ONE (02:00)
[2022-01-18 02:07] LABS: INR 1.35 (0.85-1.15); MAGNESIUM 1.4 mg/dL (1.80-2.40); PROTHROMBIN TIME 14.5 SEC (9.6-11.6)
[2022-01-18 02:16] LABS: CREATININE 1.3 mg/dL (0.5-1.5); POTASSIUM 3.3 mmol/L (3.5-5.1)
[2022-01-18 02:21] LABS: ALBUMIN 1.9 g/dL (3.5-5.0)
[2022-01-18 02:34] LABS: EOSINOPHILS % (MANUAL) 2 % (1-6); LYMPHOCYTES % (MANUAL) 27 % (22-44); MONOCYTES % (MANUAL) 4 % (2-9); SEGMENTED NEUTROPHILS % 67 % (40-70)
[2022-01-18 02:35] LABS: MAN.DIFF COMMENT-IMPRESSION MANUAL DIFFERENTIAL; PLATELET MORPHOLOGY COMMENT DECREASED
[2022-01-18 02:51] LABS: APPEARANCE,URINE CLEAR (CLEAR); BILIRUBIN,URINE NEGATIVE (NEGATIVE); COLOR,URINE YELLOW (YELLOW); GLUCOSE, URINE (UA) NEGATIVE (NEGATIVE); KETONES,URINE NEGATIVE (NEGATIVE); LEUKOCYTE ESTERASE ,URINE NEGATIVE (NEGATIVE); NITRATE,URINE NEGATIVE (NEGATIVE); OCCULT BLOOD,URINE LARGE (NEGATIVE); PROTEIN,URINE NEGATIVE (NEGATIVE)
[2022-01-18 03:02] LABS: BACTERIA,URINE Few /HPF (None Seen)
[2022-01-18] MEDS ORDERED: 0.9%NACL 1000ML 1,000 ML IV SCH (04:30)
[2022-01-18 04:43] VITALS: BP 146/83
[2022-01-18 08:00] VITALS: BP 122/77
[2022-01-18] MEDS ORDERED: PANT40TA54 PO (10:03)
[2022-01-18] MEDS ORDERED: FURO40TA5 PO (10:03)
[2022-01-18] MEDS ORDERED: LACT10SO9 PO (10:03)
[2022-01-18] MEDS ORDERED: SPIR50TA PO (10:03)
[2022-01-18] MEDS ORDERED: FERR324T PO (10:03)
[2022-01-18] MEDS: FUROSEMIDE 20MG VIAL IV SCH ×2 (10:11→15:30)
[2022-01-18] MEDS ORDERED: ALPRAZOLAM 1 MG TAB ONE (11:03)
[2022-01-18] MEDS: ALPRAZOLAM 1 MG TAB PO PRN (11:04)
[2022-01-18 11:35] VITALS: BP 120/72
[2022-01-18] MEDS ORDERED: POTASSIUM CHLORIDE 10% ELIXIR 20 MEQ/15 ML UDCUP PO PRN (13:00)
[2022-01-18] MEDS ORDERED: LIDOCAINE HCL-MPF 1% 2ML VIAL IV PRN (13:00)
[2022-01-18] MEDS ORDERED: POTASSIUM CHLORIDE 20MEQ/100ML 100 ML IV PRN (13:00)
[2022-01-18] MEDS: KCL 20 MEQ ERTAB PO PRN ×3 (13:40→17:57)
[2022-01-18] MEDS: MAGNESIUM 2GM PREMIX 50ML 50 ML IV PRN (13:40)
[2022-01-18 16:00] VITALS: BP 128/74
[2022-01-18 19:13] LABS: MEAN CORPUSCULAR HEMOGLOBIN 28.6 pg (27.0-33.0); MEAN CORPUSCULAR HGB CONC 31.8 g/dL (32.0-36.0); MEAN CORPUSCULAR VOLUME 90.1 fL (79-99); RED BLOOD CELL COUNT(AUTO) 1.92 MIL/uL (4.50-6.20); RED CELL DISTRIBUTION WIDTH 16.1 % (11.0-15.5); WHITE BLOOD COUNT (AUTO) 4.5 K/uL (4.8-10.8)
[2022-01-18 19:30] LABS: HEMATOCRIT 17.3 % (42-54)
[2022-01-18 19:56] VITALS: BP 117/79
[2022-01-18] MEDS ORDERED: FUROSEMIDE 40MG VIAL IV SCH (20:00)
[2022-01-18] MEDS: SPIRONOLACTONE 25 MG TAB PO SCH (20:39)
[2022-01-18 23:21] VITALS: BP 124/75
[2022-01-19] MEDS: ALPRAZOLAM 1 MG TAB PO PRN ×3 (00:56→23:39)
[2022-01-19 04:29] VITALS: BP 123/77
[2022-01-19 05:06] LABS: HEMATOCRIT 21.4 % (42-54); MEAN CORPUSCULAR HEMOGLOBIN 28.8 pg (27.0-33.0); MEAN CORPUSCULAR HGB CONC 32.2 g/dL (32.0-36.0); MEAN CORPUSCULAR VOLUME 89.2 fL (79-99); RED BLOOD CELL COUNT(AUTO) 2.4 MIL/uL (4.50-6.20); RED CELL DISTRIBUTION WIDTH 15.6 % (11.0-15.5)
[2022-01-19 05:50] LABS: CREATININE 1.5 mg/dL (0.5-1.5); MAGNESIUM 1.4 mg/dL (1.80-2.40); POTASSIUM 3.7 mmol/L (3.5-5.1)
[2022-01-19 07:46] LABS: HEMATOCRIT 21.8 % (42-54)
[2022-01-19 08:00] VITALS: BP 131/75
[2022-01-19] MEDS ORDERED: PANTOPRAZOLE 40 MG TAB DR PO SCH (09:00)
[2022-01-19] MEDS: FERROUS GLUCONATE TABLET PO SCH (09:18)
[2022-01-19] MEDS: FUROSEMIDE 20MG VIAL IV SCH ×2 (09:18)
[2022-01-19] MEDS: SPIRONOLACTONE 25 MG TAB PO SCH ×2 (09:18→19:52)
[2022-01-19] MEDS: LACTULOSE 20 GM/30 ML UDCUP PO SCH (09:18)
[2022-01-19 11:00] VITALS: BP 128/79
[2022-01-19 16:00] VITALS: BP 129/81
[2022-01-19 16:15] LABS: % IRON SATURATION 30.8 % (30-44)
[2022-01-19 20:52] VITALS: BP 131/80
[2022-01-19] MEDS: PROPRANOLOL HCL 10 MG TAB PO SCH (23:19)
[2022-01-19] MEDS ORDERED: CEFTRIAXONE 1G VIAL IVP SCH (23:30)
[2022-01-20 00:07] VITALS: BP 143/89
[2022-01-20] MEDS: FUROSEMIDE 20MG VIAL IV SCH ×2 (01:20→09:06)
[2022-01-20 05:00] VITALS: BP 118/64
[2022-01-20 05:22] LABS: BASOPHILS % (AUTO) 0.5 % (0.0-5.0); EOSINOPHILS % (AUTO) 3.7 % (0.0-8.0); HEMATOCRIT 26.4 % (42-54); LYMPHOCYTES % (AUTO) 24.2 % (21.0-51.0); MEAN CORPUSCULAR HEMOGLOBIN 29.3 pg (27.0-33.0); MEAN CORPUSCULAR HGB CONC 32.2 g/dL (32.0-36.0); MONOCYTES % (AUTO) 8.7 % (3.0-13.0); NEUTROPHILS % (AUTO) 62.6 % (40.0-77.0); PLATELET COUNT (AUTO) 73 K/uL (130-400); RED CELL DISTRIBUTION WIDTH 15.9 % (11.0-15.5)
[2022-01-20 05:30] LABS: CARBON DIOXIDE 32 mmol/L (21-32); CHLORIDE 100 mmol/L (101-111); CREATININE 1.6 mg/dL (0.5-1.5); GLOMERULAR FILTR. RATE CALC 52 mL/min (>60); GLUCOSE,RANDOM 96 mg/dL (70-105); POTASSIUM 3.3 mmol/L (3.5-5.1); SODIUM SERUM 137 mmol/L (136-145); UREA NITROGEN, BLOOD 13 mg/dL (7-18)
[2022-01-20 05:31] LABS: AMMONIA < 10 umol/L (11-32)
[2022-01-20 07:05] VITALS: BP 119/71
[2022-01-20 07:36] LABS: ABG BASE EXCESS 6.3 mmol/L (-2.0-3.0); ABG HCO3 30.4 mmol/L (21.0-28.0); ABG OXYGEN SATURATION 94.6 % (95.0-99.0); ABG PCO2 42 mmHg (35-48)
[2022-01-20] MEDS: LACTULOSE 20 GM/30 ML UDCUP PO SCH (09:00)
[2022-01-20] MEDS: FERROUS GLUCONATE TABLET PO SCH (09:00)
[2022-01-20] MEDS: SPIRONOLACTONE 25 MG TAB PO SCH (09:00)
[2022-01-20] MEDS ORDERED: PANTOPRAZOLE 40 MG TAB DR PO SCH (09:00)
[2022-01-20] MEDS: PROPRANOLOL HCL 10 MG TAB PO SCH (09:05)
[2022-01-20 11:50] VITALS: BP 120/72
[2022-01-20] MEDS: MAGNESIUM 2GM PREMIX 50ML 50 ML IV PRN (12:31)
[2022-01-20] MEDS: ALPRAZOLAM 1 MG TAB PO PRN (12:42)
[2022-01-20 15:05] VITALS: BP 125/75
== END 2022-01-20 16:40 | disposition home or self-care (01) ==
LOC: EDH 01:06 → EDHIP 01:07 → 3CH 03:54
PROVIDERS: ADMIT Internal Medicine Hematology & Oncology; ATTEND Internal Medicine Hematology & Oncology
DX: D62 Acute posthemorrhagic anemia (principal); Z20.822 Contact with and (suspected) exposure to COVID-19; K92.2 Gastrointestinal hemorrhage, unspecified; I50.33 Acute on chronic diastolic (congestive) heart failure; M71.21 Synovial cyst of popliteal space [Baker], right knee; E87.6 Hypokalemia; K74.60 Unspecified cirrhosis of liver; R18.8 Other ascites; E66.01 Morbid (severe) obesity due to excess calories; D61.818 Other pancytopenia; D73.1 Hypersplenism; B19.20 Unspecified viral hepatitis C without hepatic coma; D69.6 Thrombocytopenia, unspecified; E43 Unspecified severe protein-calorie malnutrition; Z63.5 Disruption of family by separation and divorce; Z79.899 Other long term (current) drug therapy
CPT/HCPCS: 96374; 96376 ×3; 36430 ×2; 96375 ×2; 83735 ×4; 84484; 80053; 83880; 82140 ×2; 85025 ×2; 85027 ×2; 85610; 86850; 86900; 86901; 86923 ×5; 87804 ×2; 81001; 36415 ×3; 87635; 71045 ×3; 76705 ×2; 99291; 93005 ×2; 83540; 83550; 80048 ×2; 85014 ×2; 85018 ×2; 82306; 84425; 82607; 93970; 82803; 74176; 97161; 36600; G0378 ×46; P9016 ×6; C9803; J3475; J1940 ×7; S0164; J0696; C9113

== ENCOUNTER 2022-01-29 10:14 | Inpatient (IN) | payer MEDICAID ==
[~2022-01-29] VITALS: Ht 170.2 cm; Wt 123.1 kg
[~2022-01-29 10:14] MED LIST changes: -LACT PO; +LACT10SO9 PO; -MAGN400T40 PO; -PHYT100T PO; -POLY17PO4 PO; -POTA-79 PO; +SPIR50TA PO; -SPIR50TA5 PO; -TRAZ-187 PO
[2022-01-29 10:47] LABS: HEMATOCRIT 21.6 % (42-54); LYMPHOCYTES % (AUTO) 24.3 % (21.0-51.0); MEAN CORPUSCULAR HEMOGLOBIN 28.5 pg (27.0-33.0); MEAN CORPUSCULAR VOLUME 91.9 fL (79-99); MONOCYTES % (AUTO) 9.4 % (3.0-13.0); NEUTROPHILS % (AUTO) 62.9 % (40.0-77.0); PLATELET COUNT (AUTO) 79 K/uL (130-400); RED BLOOD CELL COUNT(AUTO) 2.35 MIL/uL (4.50-6.20); RED CELL DISTRIBUTION WIDTH 16.1 % (11.0-15.5)
[2022-01-29 11:03] LABS: CREATININE 1.2 mg/dL (0.5-1.5); POTASSIUM 3.2 mmol/L (3.5-5.1)
[2022-01-29 11:08] LABS: ALBUMIN 1.9 g/dL (3.5-5.0); TOTAL PROTEIN, SERUM 7.1 g/dL (6.0-8.3)
[2022-01-29 11:16] LABS: APPEARANCE,URINE CLEAR (CLEAR); BILIRUBIN,URINE NEGATIVE (NEGATIVE); COLOR,URINE YELLOW (YELLOW); GLUCOSE, URINE (UA) NEGATIVE (NEGATIVE); KETONES,URINE NEGATIVE (NEGATIVE); LEUKOCYTE ESTERASE ,URINE TRACE (NEGATIVE); NITRATE,URINE NEGATIVE (NEGATIVE); OCCULT BLOOD,URINE LARGE (NEGATIVE); PROTEIN,URINE 30 mg/dL (NEGATIVE)
[2022-01-29 11:25] LABS: B-TYPE NATRIURETIC PEPTIDE 56 pg/mL (0-100)
[2022-01-29 11:32] LABS: RBC,URINE 26-50 /HPF (0-1)
[2022-01-29 11:33] LABS: BACTERIA,URINE Few /HPF (None Seen); SQUAMOUS EPITHELIAL CELL,UR Few /HPF (0-2)
[2022-01-29] MEDS ORDERED: ZOSYN 3.375GM+NS 50ML 50 ML ONE (11:45)
[2022-01-29] MEDS ORDERED: ZOSYN 3.375GM +NS 50ML IV ONE (12:00)
[2022-01-29] MEDS ORDERED: ACETAMINOPHEN 325 MG TAB PO PRN (12:30)
[2022-01-29] MEDS ORDERED: ONDANSETRON 4MG INJ IVP PRN (12:30)
[2022-01-29 15:56] VITALS: BP 144/84
[2022-01-29] MEDS ORDERED: PHARMACY COMMUNICATION MISC SCH (16:00)
[2022-01-29] MEDS: ALPRAZOLAM 1 MG TAB PO PRN (16:30)
[2022-01-29 19:30] VITALS: BP 119/70
[2022-01-29] MEDS: ZOSYN 3.375GM +NS 50ML IV SCH (21:57)
[2022-01-29] MEDS: SPIRONOLACTONE 25 MG TAB PO SCH (23:38)
[2022-01-29 23:45] VITALS: BP 126/72
[2022-01-30] MEDS: ALPRAZOLAM 1 MG TAB PO PRN ×2 (04:03→20:59)
[2022-01-30] MEDS: ZOSYN 3.375GM +NS 50ML IV SCH ×3 (04:04→20:58)
[2022-01-30 04:25] VITALS: BP 130/75
[2022-01-30 06:33] LABS: HEMATOCRIT 20.4 % (42-54)
[2022-01-30 08:02] VITALS: BP 123/73
[2022-01-30] MEDS: LACTULOSE 20 GM/30 ML UDCUP PO SCH (09:52)
[2022-01-30] MEDS: FERROUS GLUCONATE TABLET PO SCH (09:53)
[2022-01-30] MEDS: PANTOPRAZOLE 40 MG TAB DR PO SCH (09:53)
[2022-01-30] MEDS: SPIRONOLACTONE 25 MG TAB PO SCH ×2 (09:53→20:59)
[2022-01-30] MEDS: FUROSEMIDE 40 MG TABLET PO SCH (09:53)
[2022-01-30 10:33] LABS: HEMATOCRIT 21.6 % (42-54)
[2022-01-30 11:42] VITALS: BP 134/72
[2022-01-30 16:10] VITALS: BP 127/78
[2022-01-30 20:06] VITALS: BP 131/61
[2022-01-31] VITALS (8 sets, daily range): BP systolic 113–131; BP diastolic 66–74
[2022-01-31] MEDS: ZOSYN 3.375GM +NS 50ML IV SCH ×3 (04:22→21:47)
[2022-01-31 05:21] LABS: HEMATOCRIT 21.5 % (42-54); MEAN CORPUSCULAR HEMOGLOBIN 29.9 pg (27.0-33.0); MEAN CORPUSCULAR HGB CONC 32.1 g/dL (32.0-36.0); MEAN CORPUSCULAR VOLUME 93.1 fL (79-99); PLATELET COUNT (AUTO) 65 K/uL (130-400); RED BLOOD CELL COUNT(AUTO) 2.31 MIL/uL (4.50-6.20); RED CELL DISTRIBUTION WIDTH 16.2 % (11.0-15.5); WHITE BLOOD COUNT (AUTO) 4.3 K/uL (4.8-10.8)
[2022-01-31 05:28] LABS: CREATININE 1.6 mg/dL (0.5-1.5); POTASSIUM 3.1 mmol/L (3.5-5.1)
[2022-01-31 05:52] LABS: PLATELET MORPHOLOGY COMMENT DECREASED
[2022-01-31] MEDS: FUROSEMIDE 40 MG TABLET PO SCH (09:14)
[2022-01-31] MEDS: FERROUS GLUCONATE TABLET PO SCH (09:14)
[2022-01-31] MEDS: LACTULOSE 20 GM/30 ML UDCUP PO SCH (09:14)
[2022-01-31] MEDS: PANTOPRAZOLE 40 MG TAB DR PO SCH (09:14)
[2022-01-31] MEDS: SPIRONOLACTONE 25 MG TAB PO SCH ×2 (09:14→21:49)
[2022-01-31] MEDS: ALPRAZOLAM 1 MG TAB PO PRN ×2 (09:16→21:48)
[2022-01-31] MEDS ORDERED: LIDOCAINE HCL-MPF 1% 2ML VIAL IV PRN (11:00)
[2022-01-31] MEDS ORDERED: POTASSIUM CHLORIDE 20MEQ/100ML 100 ML IV PRN (11:00)
[2022-01-31] MEDS ORDERED: POTASSIUM CHLORIDE 10% ELIXIR 20 MEQ/15 ML UDCUP PO PRN (11:00)
[2022-01-31] MEDS: KCL 20 MEQ ERTAB PO PRN ×2 (12:01→16:45)
[2022-02-01 04:27] VITALS: BP 122/74
[2022-02-01] MEDS: ZOSYN 3.375GM +NS 50ML IV SCH ×2 (05:11→13:12)
[2022-02-01 07:24] VITALS: BP 140/75
[2022-02-01 08:01] LABS: HEMATOCRIT 25.2 % (42-54); MEAN CORPUSCULAR HGB CONC 31.3 g/dL (32.0-36.0); MEAN CORPUSCULAR VOLUME 92.6 fL (79-99); RED BLOOD CELL COUNT(AUTO) 2.72 MIL/uL (4.50-6.20); RED CELL DISTRIBUTION WIDTH 16.5 % (11.0-15.5); WHITE BLOOD COUNT (AUTO) 5.2 K/uL (4.8-10.8)
[2022-02-01 08:18] LABS: CREATININE 1.8 mg/dL (0.5-1.5); POTASSIUM 3.2 mmol/L (3.5-5.1)
[2022-02-01] MEDS: ALPRAZOLAM 1 MG TAB PO PRN (08:52)
[2022-02-01] MEDS: LACTULOSE 20 GM/30 ML UDCUP PO SCH (08:52)
[2022-02-01] MEDS: FERROUS GLUCONATE TABLET PO SCH (08:52)
[2022-02-01] MEDS: FUROSEMIDE 40 MG TABLET PO SCH (08:52)
[2022-02-01] MEDS: SPIRONOLACTONE 25 MG TAB PO SCH (08:52)
[2022-02-01] MEDS: PANTOPRAZOLE 40 MG TAB DR PO SCH (08:52)
[2022-02-01 12:18] VITALS: BP 127/76
== END 2022-02-01 15:30 | disposition home or self-care (01) | DRG 383 ==
LOC: EDH 10:14 → EDHIP 10:15 → 3BH 14:39
PROVIDERS: ADMIT Internal Medicine Hematology & Oncology; ATTEND Internal Medicine Hematology & Oncology
PROC: 30233N1 Transfusion of Nonautologous Red Blood Cells into Peripheral Vein, Percutaneous Approach (ICD-10-PCS; principal; 2022-01-29)
DX: L03.115 Cellulitis of right lower limb (principal); D61.818 Other pancytopenia; E43 Unspecified severe protein-calorie malnutrition; I50.30 Unspecified diastolic (congestive) heart failure; K72.10 Chronic hepatic failure without coma; Z20.822 Contact with and (suspected) exposure to COVID-19; K92.2 Gastrointestinal hemorrhage, unspecified; K74.60 Unspecified cirrhosis of liver; L03.116 Cellulitis of left lower limb; D64.9 Anemia, unspecified; E87.70 Fluid overload, unspecified; B19.20 Unspecified viral hepatitis C without hepatic coma; F41.9 Anxiety disorder, unspecified
CPT/HCPCS: 36415; 36430; 71045; 80048; 80053; 81001; 82140; 83605; 83880; 84484; 85014; 85018; 85025; 85027; 86850; 86900; 86901; 86923; 87040; 87635; 87804; 93005; 93971; C9803; G0378; J2405; J2543; P9016

== ENCOUNTER 2022-03-28 02:58 | Emergency (ER) | payer MEDICAID ==
[~2022-03-28] VITALS: Ht 170.2 cm; Wt 126.1 kg
[2022-03-28 03:44] LABS: BASOPHILS % (AUTO) 0.5 % (0.0-5.0); EOSINOPHILS % (AUTO) 1.4 % (0.0-8.0); HEMATOCRIT 22.5 % (42-54); MEAN CORPUSCULAR HEMOGLOBIN 32.5 pg (27.0-33.0); MEAN CORPUSCULAR HGB CONC 32.9 g/dL (32.0-36.0); MEAN CORPUSCULAR VOLUME 98.7 fL (79-99); MONOCYTES % (AUTO) 6.9 % (3.0-13.0); NEUTROPHILS % (AUTO) 62.7 % (40.0-77.0); PLATELET COUNT (AUTO) 39 K/uL (130-400); RED BLOOD CELL COUNT(AUTO) 2.28 MIL/uL (4.50-6.20); RED CELL DISTRIBUTION WIDTH 21.2 % (11.0-15.5); WHITE BLOOD COUNT (AUTO) 4.4 K/uL (4.8-10.8)
[2022-03-28 03:52] LABS: CREATININE 1.2 mg/dL (0.5-1.5); POTASSIUM 3.6 mmol/L (3.5-5.1)
[2022-03-28 03:57] LABS: ALBUMIN 1.8 g/dL (3.5-5.0)
[2022-03-28 04:07] LABS: INR 1.5 (0.85-1.15)
[2022-03-28 04:09] LABS: PARTIAL THROMBOPLASTIN TIME 31.9 SEC (26.3-35.5)
[2022-03-28 04:14] LABS: PLATELET MORPHOLOGY COMMENT DECREASED
[2022-03-28 05:05] VITALS: BP 123/70
[2022-03-28] MEDS ORDERED: ALPRAZOLAM 1 MG TAB PO ONE (05:30)
[2022-03-28] MEDS ORDERED: PROM25TA7 PO (05:36)
[2022-03-28] MEDS ORDERED: PROMETHAZINE HCL 25 MG TABLET PO SCH (06:00)
[2022-03-28] MEDS ORDERED: PROMETHAZINE HCL 25 MG TABLET ONE (06:02)
== END 2022-03-28 06:33 | disposition home or self-care (01) ==
LOC: EDH 02:58
DX: F41.9 Anxiety disorder, unspecified (principal); F13.20 Sedative, hypnotic or anxiolytic dependence, uncomplicated; K75.9 Inflammatory liver disease, unspecified; D68.9 Coagulation defect, unspecified; Z79.899 Other long term (current) drug therapy; Z98.890 Other specified postprocedural states
CPT/HCPCS: 99284; 71045; 80053; 82140; 85025; 85610; 85730; 86850; 86900; 86901; 36415; Q0169

== ENCOUNTER 2022-07-02 20:45 | Emergency (ER) | payer MEDICAID ==
[~2022-07-02] VITALS: Ht 170.2 cm; Wt 114.3 kg
[~2022-07-02 20:45] MED LIST changes: -FURO40TA5 PO
[2022-07-02 22:51] LABS: BASOPHILS % (AUTO) 1.3 % (0.0-5.0); EOSINOPHILS % (AUTO) 8.4 % (0.0-8.0); LYMPHOCYTES % (AUTO) 37.3 % (21.0-51.0); MEAN CORPUSCULAR HEMOGLOBIN 29.2 pg (27.0-33.0); MEAN CORPUSCULAR HGB CONC 31.7 g/dL (32.0-36.0); MEAN CORPUSCULAR VOLUME 92.3 fL (79-99); MONOCYTES % (AUTO) 7.8 % (3.0-13.0); PLATELET COUNT (AUTO) 98 K/uL (130-400); RED BLOOD CELL COUNT(AUTO) 3.25 MIL/uL (4.50-6.20); RED CELL DISTRIBUTION WIDTH 13.5 % (11.0-15.5); WHITE BLOOD COUNT (AUTO) 4.5 K/uL (4.8-10.8)
[2022-07-02 23:05] LABS: CREATININE 0.9 mg/dL (0.5-1.5); POTASSIUM 3.3 mmol/L (3.5-5.1)
[2022-07-02 23:10] LABS: ALBUMIN 2.6 g/dL (3.5-5.0); TOTAL PROTEIN, SERUM 7.3 g/dL (6.0-8.3)
[2022-07-03] MEDS ORDERED: FUROSEMIDE 40 MG TABLET PO ONE (02:30)
[2022-07-03 02:45] VITALS: BP 158/94
== END 2022-07-03 03:03 | disposition home or self-care (01) ==
LOC: EDH 20:45
DX: K72.90 Hepatic failure, unspecified without coma (principal); Z79.899 Other long term (current) drug therapy; Z90.49 Acquired absence of other specified parts of digestive tract; Z20.822 Contact with and (suspected) exposure to COVID-19
CPT/HCPCS: 99285; 71045; 87635; 84484; 80053; 83880; 82140; 85025; 85730; 86850; 86900; 86901; 87040 ×2; 87804 ×2; 83605; 36415; 93005; C9803

== ENCOUNTER 2023-01-10 15:45 | Inpatient (IN) | payer MEDICAID ==
[~2023-01-10] VITALS: Ht 170.2 cm; Wt 115.5 kg
[2023-01-10 16:24] LABS: BASOPHILS % (AUTO) 0.9 % (0.0-5.0); EOSINOPHILS % (AUTO) 3.7 % (0.0-8.0); LYMPHOCYTES % (AUTO) 15.5 % (21.0-51.0); MEAN CORPUSCULAR HEMOGLOBIN 29.4 pg (27.0-33.0); MEAN CORPUSCULAR HGB CONC 31.3 g/dL (32.0-36.0); MEAN CORPUSCULAR VOLUME 94.1 fL (79-99); MONOCYTES % (AUTO) 13.1 % (3.0-13.0); NEUTROPHILS % (AUTO) 66.4 % (40.0-77.0); PLATELET COUNT (AUTO) 98 K/uL (130-400); RED CELL DISTRIBUTION WIDTH 16.4 % (11.0-15.5); WHITE BLOOD COUNT (AUTO) 5.4 K/uL (4.8-10.8)
[2023-01-10 16:33] LABS: INR 1.21 (0.85-1.15); PROTHROMBIN TIME 13.9 SEC (9.6-11.6)
[2023-01-10 16:34] LABS: PARTIAL THROMBOPLASTIN TIME 27.9 SEC (26.3-35.5)
[2023-01-10] MEDS ORDERED: LIDOCAINE HCL 1% 20 ML VIAL ONE (16:53)
[2023-01-10] MEDS ORDERED: ALBUMIN (HUMAN) 25% 200 ML IV ONE (16:53)
[2023-01-10] MEDS ORDERED: SODIUM BICARB 50MEQ 50ML VIAL 50 ML ONE (16:53)
[2023-01-10 17:59] VITALS: BP 110/53; PULSE 104; RESP 18
[2023-01-10] MEDS ORDERED: 0.9%NACL 1000ML 1,000 ML IV SCH (18:00)
[2023-01-10 18:03] LABS: APPEARANCE BODY FLUID CLEAR (CLEAR); COLOR,BODY FLUID YELLOW (LT YELLOW); SPECIMENTYPE,BODY FLUID ASCITES; TOTAL VOLUME,BODY FLUID 15000 mL
[2023-01-10 18:17] LABS: BODY FLUID RBC 72 /cu. mm.; BODY FLUID WBC 164 /cu. mm.
[2023-01-10] MEDS ORDERED: FURO40TA7 PO (18:28)
[2023-01-10] MEDS ORDERED: IRON150C15 PO (18:31)
[2023-01-10] MEDS ORDERED: COMP10 PO (18:33)
[2023-01-10] MEDS ORDERED: TORS20TA4 PO (18:34)
[2023-01-10] MEDS ORDERED: POTA20PA32 PO (18:36)
[2023-01-10] MEDS ORDERED: MAGN400T7 PO (18:37)
[2023-01-10] MEDS ORDERED: METH-822 PO (18:44)
[2023-01-10 19:00] LABS: BF LYMPHOCYTE 15 %; BF MESOTHELIAL 31 %; BF MONOCYTE 4 %
[2023-01-10 19:23] LABS: CREATININE 1.1 mg/dL (0.5-1.5); POTASSIUM 3.4 mmol/L (3.5-5.1)
[2023-01-10 19:27] LABS: ALBUMIN 2.2 g/dL (3.5-5.0)
[2023-01-10] MEDS ORDERED: FUROSEMIDE 40MG VIAL IV SCH (19:30)
[2023-01-10] MEDS ORDERED: CEFTRIAXONE 2GM VIAL IVPB SCH (19:30)
[2023-01-10] MEDS ORDERED: POTASSIUM CHLORIDE 20MEQ/100ML 100 ML IV PRN ×2 (21:30)
[2023-01-10] MEDS ORDERED: POTASSIUM CHLORIDE 10% ELIXIR 20 MEQ/15 ML UDCUP PO PRN (21:30)
[2023-01-10] MEDS: ALBUMIN (HUMAN) 25% 50 ML IV SCH (21:30)
[2023-01-10] MEDS ORDERED: POTASSIUM BICARB/CIT AC 25 MEQ TABLET.EFF ONE (21:36)
[2023-01-10] MEDS ORDERED: ALBUMIN (HUMAN) 25% 50 ML IV ONE (21:36)
[2023-01-10] MEDS ORDERED: POTASSIUM BICARB/CIT AC 25 MEQ TABLET.EFF PO ONE (22:00)
[2023-01-10 23:03] VITALS: BP 114/65; PULSE 100; RESP 18
[2023-01-11] MEDS: ALBUMIN (HUMAN) 25% 50 ML IV SCH ×3 (03:34→17:21)
[2023-01-11 04:04] VITALS: BP 96/42; PULSE 100; RESP 19
[2023-01-11 04:56] LABS: BASOPHILS % (AUTO) 0.5 % (0.0-5.0); EOSINOPHILS % (AUTO) 4.3 % (0.0-8.0); HEMATOCRIT 26.5 % (42-54); LYMPHOCYTES % (AUTO) 21.4 % (21.0-51.0); MEAN CORPUSCULAR HEMOGLOBIN 29.4 pg (27.0-33.0); MEAN CORPUSCULAR HGB CONC 30.9 g/dL (32.0-36.0); MONOCYTES % (AUTO) 12.5 % (3.0-13.0); NEUTROPHILS % (AUTO) 61.1 % (40.0-77.0); PLATELET COUNT (AUTO) 91 K/uL (130-400); RED BLOOD CELL COUNT(AUTO) 2.79 MIL/uL (4.50-6.20); RED CELL DISTRIBUTION WIDTH 16.2 % (11.0-15.5); WHITE BLOOD COUNT (AUTO) 4.4 K/uL (4.8-10.8)
[2023-01-11] MEDS ORDERED: ALPRAZOLAM 1 MG TAB PO PRN (05:00)
[2023-01-11 05:08] LABS: CREATININE 1.2 mg/dL (0.5-1.5); POTASSIUM 3.5 mmol/L (3.5-5.1); TOTAL PROTEIN, SERUM 5.3 g/dL (6.0-8.3)
[2023-01-11] MEDS: KCL 20 MEQ ERTAB PO PRN ×2 (05:52→08:45)
[2023-01-11 08:00] VITALS: BP 116/64; PULSE 98; RESP 18
[2023-01-11 08:50] VITALS: O2SAT 94
[2023-01-11] MEDS ORDERED: PANTOPRAZOLE 40 MG TAB DR PO SCH (09:00)
[2023-01-11] MEDS ORDERED: NON-FORMULARY MEDICATION 1 EACH (Potassium Chloride 20 MEQ) PO SCH (09:00)
[2023-01-11] MEDS ORDERED: TORSEMIDE 20 MG TAB PO SCH (09:00)
[2023-01-11] MEDS ORDERED: LACTULOSE 20 GM/30 ML UDCUP PO SCH (09:00)
[2023-01-11] MEDS ORDERED: IRON POLYSACCHARIDES COMPLEX 150 MG CAPSULE PO SCH (09:00)
[2023-01-11] MEDS ORDERED: SPIRONOLACTONE 100 MG PO SCH (09:00)
[2023-01-11] MEDS ORDERED: METHADONE HCL 10 MG TABLET PO SCH (09:00)
[2023-01-11] MEDS ORDERED: MAGNESIUM OXIDE 400 MG TABLET PO SCH (09:00)
[2023-01-11] MEDS ORDERED: FLUCONAZOLE 200 MG/NS 100 ML 100 ML IV SCH (09:00)
[2023-01-11 12:00] VITALS: BP 104/61; PULSE 91; RESP 17
[2023-01-11 13:00] VITALS: PULSE 109; PULSE 89; RESP 18; RESP 20; O2SAT 91; O2SAT 95
[2023-01-11] MEDS ORDERED: BACITRACIN 28.4 GM OINT TP SCH (15:00)
[2023-01-11 16:00] VITALS: BP 113/69; PULSE 93; RESP 17
[2023-01-11] MEDS ORDERED: AMMONIUM LACTATE 226GM LOTION TP SCH (21:00)
== END 2023-01-11 19:45 | disposition home or self-care (01) ==
LOC: EDH 15:45 → EDHIP 15:46 → OBSVTOIN 15:46 → 4BH 21:42
PROVIDERS: ADMIT Internal Medicine Hematology & Oncology; ATTEND Internal Medicine Hematology & Oncology
PROC: 0W9G3ZZ Drainage of Peritoneal Cavity, Percutaneous Approach (ICD-10-PCS; principal; 2023-01-11)
DX: K74.60 Unspecified cirrhosis of liver (principal); J96.90 Respiratory failure, unspecified, unspecified whether with hypoxia or hypercapnia; E46 Unspecified protein-calorie malnutrition; Z76.82 Awaiting organ transplant status; L03.115 Cellulitis of right lower limb; D69.6 Thrombocytopenia, unspecified; R18.8 Other ascites; L03.116 Cellulitis of left lower limb; D64.9 Anemia, unspecified; F10.10 Alcohol abuse, uncomplicated; K21.9 Gastro-esophageal reflux disease without esophagitis; B19.20 Unspecified viral hepatitis C without hepatic coma; F41.9 Anxiety disorder, unspecified; Z91.199 Patient's noncompliance with other medical treatment and regimen due to unspecified reason; Z68.39 Body mass index [BMI] 39.0-39.9, adult
CPT/HCPCS: 36415; 49083; 80053; 82140; 85025; 85610; 85730; 87071; 87205; 89051; 94760; 96365; C1729; G0378; J0696; J1450; J1940; J3490; P9046; P9047

== ENCOUNTER 2023-11-05 21:24 | Emergency (ER) | payer MEDICAID, OTHER ==
[~2023-11-05] VITALS: Ht 170.2 cm; Wt 95.7 kg
[2023-11-05 22:20] LABS: BASOPHILS # (AUTO) 0.02 K/uL (0.00-0.20); BASOPHILS % (AUTO) 0.5 % (0.0-5.0); EOSINOPHILS # (AUTO) 0.09 K/uL (0.00-0.70); EOSINOPHILS % (AUTO) 2.3 % (0.0-8.0); HEMATOCRIT 34.4 % (42-54); IMMATURE GRANULOCYTE ABSOLUTE 0.02 K/uL (0-1); LYMPHOCYTES # (AUTO) 1.2 K/uL (1.0-4.8); LYMPHOCYTES % (AUTO) 28.8 % (21.0-51.0); MEAN CORPUSCULAR HEMOGLOBIN 34.8 pg (27.0-33.0); MEAN CORPUSCULAR HGB CONC 33.1 g/dL (32.0-36.0); MEAN CORPUSCULAR VOLUME 104.9 fL (79-99); MONOCYTES # (AUTO) 0.4 K/uL (0.1-1.0); MONOCYTES % (AUTO) 10.3 % (3.0-13.0); NEUTROPHILS # (AUTO) 2.3 K/uL (1.8-7.7); NEUTROPHILS % (AUTO) 57.6 % (40.0-77.0); PLATELET COUNT (AUTO) 49 K/uL (130-400); RED BLOOD CELL COUNT(AUTO) 3.28 MIL/uL (4.50-6.20)
[2023-11-05 22:36] LABS: ALBUMIN 2.5 g/dL (3.5-5.0); BILIRUBIN,TOTAL 3.6 mg/dL (0.2-1.0); CREATININE 0.9 mg/dL (0.5-1.3)
[2023-11-05 22:38] LABS: POTASSIUM 2.9 mmol/L (3.5-5.1)
[2023-11-05] MEDS ORDERED: IOHEXOL 350 MG/ML 100ML INFUS..BTL IV ONE (23:22)
[2023-11-06] MEDS: LACTULOSE 20 GM/30 ML UDCUP ONE (00:20)
[2023-11-06] MEDS: LACTULOSE 20 GM/30 ML UDCUP PR ONE (00:21)
[2023-11-06 02:19] VITALS: BP 117/67; PULSE 71; RESP 18; O2SAT 98
== END 2023-11-06 02:20 | disposition home or self-care (01) ==
LOC: EDH 21:24
DX: I85.10 Secondary esophageal varices without bleeding (principal); K74.60 Unspecified cirrhosis of liver; E87.6 Hypokalemia; D64.9 Anemia, unspecified; Z98.890 Other specified postprocedural states; Z88.8 Allergy status to other drugs, medicaments and biological substances
CPT/HCPCS: 99285; 74177; 80053; 83690; 85025; 83605; 36415; 84145; Q9967

== ENCOUNTER 2023-12-18 14:54 | Emergency (ER) | payer MEDICARE, OTHER ==
[~2023-12-18] VITALS: Ht 170.2 cm; Wt 97.5 kg
[2023-12-18 14:55] VITALS: BP 113/74; PULSE 114; RESP 14
[2023-12-18] MEDS: METOCLOPRAMIDE 10 MG/2 ML VIAL IVP ONE (15:24)
[2023-12-18] MEDS: BISACODYL 10 MG SUPP.RECT RC ONE (15:24)
[2023-12-18] MEDS: LACTULOSE 20 GM/30 ML UDCUP PO ONE (15:25)
[2023-12-18] MEDS ORDERED: GOLY4L PO (16:30)
== END 2023-12-18 16:46 | disposition home or self-care (01) ==
LOC: EDH 14:54
DX: K59.09 Other constipation (principal); D64.9 Anemia, unspecified; Z98.890 Other specified postprocedural states
CPT/HCPCS: 99283; 96374; 74018; J2765

== ENCOUNTER → 2024-01-16 | Outpatient (CLI) | payer MEDICARE ==
[~2024-01-16] MED LIST changes: -ALPR1TAB7 PO; -FERR324T PO; +GOLY4L PO; +IOHEXOL 350 MG/ML 100ML INFUS..BTL IV ONE; -LACT10SO9 PO; -PANT40TA54 PO; -SPIR50TA PO
== END | disposition home or self-care (01) ==
LOC: RAH 09:39
PROVIDERS: ATTEND Internal Medicine Gastroenterology
DX: R16.2 Hepatomegaly with splenomegaly, not elsewhere classified (principal); K76.0 Fatty (change of) liver, not elsewhere classified; R18.8 Other ascites; J98.11 Atelectasis; M47.815 Spondylosis without myelopathy or radiculopathy, thoracolumbar region; R10.84 Generalized abdominal pain; K74.60 Unspecified cirrhosis of liver; I86.8 Varicose veins of other specified sites; Z90.49 Acquired absence of other specified parts of digestive tract
CPT/HCPCS: 74178; Q9967 ×2